=== PATIENT | male | born 1960 | race Caucasian/White ===

== ENCOUNTER 2016-08-13 21:38 | Emergency (ER) | payer OTHER ==
--- NOTE | ~2016-08-13 | CR72 ---
[facility]. [facility] A Service of [facility] & [facility] RADIOLOGY TEXT RESULTS PATIENT: KANDI ROBERTSON LOCATION: SED : 60 UNIT #: [id number] AGE: [address]: Robin Zapata MD SEX: M ORDER DR: [id number] [place] [id number] E MR#: [id number] Acc #: [id number] NAME: KANDI ROBERTSON. : 1960 SEX: M STUDY DATE/TIME: 08/13/2016 22:24 UNIT: SED ROOM: STUDY DESCRIPTION: CR Chest Single View Portable Attending Physician: Robin Zapata M.D. Ordering Physician: Robin Zapata M.D. Primary Care Physician: Shashank Vázquez M.D. MEDICAL IMAGING REPORT This report is preliminary unless electronic signature is present. EXAM Portable chest 08/13/2016 at 22:24 INDICATION Right-side chest pain and upper abdominal pain for 3 days. FINDINGS AP portable views of the chest are compared with 11/10/2013. Cardiac and mediastinal contours are normal. Patient is status post sternotomy. Lungs are clear. There is no pneumothorax. IMPRESSION No active disease. Dictated by... Varun Newsome Jr., M.D. THIS IS AN ELECTRONICALLY VERIFIED REPORT Varun Newsome Jr., M.D. at 08/14/2016 11:14 AM SCOTT/junior TD: 08/14/2016 06:21 JOB #: [id number] MEDICAL IMAGING REPORT Page 1 of 1
--- NOTE | ~2016-08-13 | EKG ---
PATIENT: KANDI ROBERTSON UNIT #: [id number] Ventricular Rate: 89 BPM Atrial Rate: 89 BPM P-R Interval: 154 ms QRS Duration: 76 ms Q-T Interval: 342 ms QTC Calculation(Bezet): 416 ms P [place]: 83 degrees Calculated R [place]: 83 degrees Calculated T [place]: -128 degrees Diagnosis Line: Normal sinus rhythm Diagnosis Line: Possible Left atrial enlargement Diagnosis Line: Left ventricular hypertrophy Diagnosis Line: Abnormal ECG Diagnosis Line: When compared with ECG of 12-NOV-2013 06:22, Diagnosis Line: Vent. rate has increased BY 33 BPM Diagnosis Line: ST now depressed in Inferior leads Diagnosis Line: T wave inversion now evident in Inferior leads Diagnosis Line: T wave inversion no longer evident in Anterior Diagnosis Line: leads Diagnosis Line: Confirmed by LIDYA MCKAY MD ([id number]) on Diagnosis Line: 08/24/2016 7:13:54 AM INTERPRETING XOCHILT MARROQUIN
--- NOTE | ~2016-08-13 | CT2 ---
[facility] A Service [facility] RADIOLOGY TEXT RESULTS PATIENT: KANDI ROBERTSON LOCATION: SED : 60 UNIT #: [id number] AGE: [address]: Robin Zapata MD SEX: M ORDER DR: [id number] [place] [address] [id number] E MR#: [id number] Acc #: [id number] NAME: KANDI ROBERTSON. : 1960 SEX: M STUDY DATE/TIME: 08/13/2016 22:38 UNIT: SED ROOM: STUDY DESCRIPTION: CT Abd and Pelv W Cont Attending Physician: Robin Zapata M.D. Ordering Physician: Robin Zapata M.D. Primary Care Physician: Shashank Vázquez M.D. MEDICAL IMAGING REPORT This report is preliminary unless electronic signature is present. EXAM CT abdomen and pelvis 08/13/2016 at 22:38 INDICATION Right-side chest and abdominal pain for 3 days. Pain is currently 10/10. TECHNIQUE Axial images were obtained through the abdomen and pelvis following IV contrast administration. Multiplanar reformats were obtained. Comparison made with 03/16/2010. This CT examination was performed with one or more of the following radiation dose reduction techniques: automatic exposure control, adjustment of mA and/or kV according to patient size, and iterative reconstruction. FINDINGS ABDOMEN: There is emphysema in the lung bases. The solid organs are normal. No free fluid or adenopathy is seen. The GI tract is within normal limits. Gallbladder unremarkable. No biliary obstruction. PELVIS: Urinary bladder is normal. Appendix is surgically absent. GI tract otherwise unremarkable. No free fluid. IMPRESSION 1. No acute findings in the abdomen or pelvis. 2. The GI tract is grossly normal except for changes of appendectomy. 3. Both kidneys enhance normally and are nonobstructed. 4. Emphysema in the lung bases. Dictated by... Varun Newsome Jr., M.D. THIS IS AN ELECTRONICALLY VERIFIED REPORT [facility] A Service [facility] RADIOLOGY TEXT RESULTS PATIENT: KANDI ROBERTSON LOCATION: [facility] : 60 UNIT #: [id number] AGE: [address]: Robin Zapata MD SEX: M ORDER DR: Varun Newsome Jr., M.D. at 08/14/2016 11:14 AM SCOTT/junior TD: 08/14/2016 06:38 JOB #: [id number] MEDICAL IMAGING REPORT Page 1 of 1
[~2016-08-13 21:38] MED LIST: ACETAMINOPHEN PO; ADVAIR INH; ALBUTEROL; ASPIRIN81 M2 PO; COLACE PO; COMBIVENT U/D3 M3 INH; COMBIVENT U/D3 ML INH; DILANTIN PO; DOXYCYCLINE PO; FIBERCON625 MG PO; HYDROCODON-ACE1 EAC4 PO; HYDROCODON-ACE1 EACH PO; KEFLEX PO; KEFLEX500 M1 PO; KEPPRA1000 MG PO; KEPPRA250 MG PO; KEPPRA500 MG PO; LIPITOR20 MG PO; LISINOPRIL PO; NAPROXEN PO; NICOTINE TRANSD21 MG EXT; NITROSTAT0.4 MG SL; NORVASC PO; PERCOCET10 PO; PERCOCET5/325 PO; PREDNISONE PO; PROTONIX PO; ROXICODONE15 MG PO; TEGRETOL XR PO; VICODIN 5/1 TAB 5/50 PO; VICODIN 5/500 T1 TAB PO; ZITHROMAX PO; [UNRECOGNIZED DRUG - OTHER]
[2016-08-13 21:40] LABS: BASOPHIL# 0.2 X10e3 (0-0.3); BASOPHIL% 1.1 % (0-2.5); EOSINOPHIL% 0.4 % (0.0-7.0); HEMATOCRIT 46.8 % (38.0-50.0); HEMOGLOBIN 16.6 gm/dL (13.0-16.0); LYMPHOCYTE# 1.6 X10e3 (1.0-3.5); LYMPHOCYTE% 11.8 % (17.0-45.0); MEAN CELL VOLUME 89.9 FL (83-96); MEAN CORPUSCULAR HEMOGLOBIN 31.9 PG (28-34); MEAN CORPUSCULAR HGB CONC 35.4 g/dL (30-36); MEAN PLATELET VOLUME 7.1 FL (6.5-11.5); MONOCYTE# 1.4 X10e3 (0-1.0); MONOCYTE% 10.4 % (3.0-12.0); NEUTROPHIL# 10.6 X10e3 (1.5-7.1); NEUTROPHIL% 76.3 % (40-75); PLATELET COUNT 207 X10e3 (140-420); RED CELL DISTRIBUTION WIDTH 14.2 % (11.0-15.5); WHITE BLOOD COUNT 13.8 X10e3 (4.0-10.5)
[2016-08-13 21:41] LABS: DIFF IND NO
[2016-08-13 21:45] LABS: INR 1.1; PROTHROMBIN TIME (PATIENT) 12.9 SECONDS (9.5-12.4)
[2016-08-13 21:53] LABS: PARTIAL THROMBOPLASTIN TIME 29.9 SECONDS (25.6-38.1)
[2016-08-13 21:55] LABS: ALBUMIN SERUM 4.7 g/dL (3.5-5.0); ALKALINE PHOSPHATASE 100 U/L (32-92); ALT (SGPT) 13 U/L (10-40); AST (SGOT) 19 U/L (10-42); BILIRUBIN, DIRECT 0.1 mg/dL (0.0-0.2); BILIRUBIN,INDIRECT 0.7 mg/dL (0.0-0.9); BILIRUBIN,TOTAL 0.8 mg/dL (0.2-2.0); BLOOD UREA NITROGEN 10 mg/dL (9-23); CALCIUM SERUM 9.9 mg/dL (8.4-10.2); CARBON DIOXIDE 23 mmol/L (22-31); CHLORIDE 95 mmol/L (100-111); CREATININE SERUM 0.8 mg/dL (0.6-1.4); GLOM FILT RATE Estimated 100.6 mL/min (>60); GLUCOSE FASTING 107 mg/dL (70-110); LIPASE 22 U/L (22-51); POTASSIUM 4.3 mmol/L (3.5-5.1); PROTEIN TOTAL SERUM 8.2 g/dL (6.0-8.3); SODIUM 130 mmol/L (135-145)
[2016-08-13 21:57] LABS: POC - CKMB 1.4 ng/mL (0.0-7.9); POC - MYOGLOBIN 99.2 ng/mL (0.0-169.0); POC - TROPONIN <0.05 ng/mL (<=0.05)
[2016-08-13 22:00] LABS: AMYLASE <7 U/L (0-46)
[2016-08-13 22:03] LABS: DDIMER <200 NG/ML (0-200)
[2016-08-13 22:51] LABS: URINE APPEARANCE CLEAR; URINE BLOOD NEG (NEG); URINE COLOR YELLOW; URINE GLUCOSE NEG (NORM); URINE LEUKOCYTE ESTERASE NEG (NEG); URINE NITRATE NEG (NEG); URINE PROTEIN TRACE (NEG)
[2016-08-13 22:52] LABS: MICRO INDICATED? NO; URINE BILIRUBIN NEG (NEG); URINE KETONE 2+ (NEG); URINE SOURCE CLEAN CATCH
[2016-08-13 23:00] LABS: AMPHETAMINE NEG (NEG); BARBITURATES NEG (NEG); BENZODIAZEPINES NEG (NEG); COCAINE NEG (NEG); MARIJUANA POS (NEG); OPIATES POS (NEG); TRICYCLIC ANTIDEPRESSANTS NEG (NEG); U METHADONE NEG (NEG)
[2016-08-14 01:10] LABS: POC - CKMB <1.0 ng/mL (0.0-7.9); POC - MYOGLOBIN 72.2 ng/mL (0.0-169.0); POC - TROPONIN <0.05 ng/mL (<=0.05)
== END 2016-08-14 01:40 | disposition home or self-care (01) ==
LOC: SED 21:38
PROVIDERS: Emergency Medicine
DX: R07.9 Chest pain, unspecified (principal); R10.9 Unspecified abdominal pain; E86.0 Dehydration; I10 Essential (primary) hypertension; E78.5 Hyperlipidemia, unspecified; F17.200 Nicotine dependence, unspecified, uncomplicated; Z79.82 Long term (current) use of aspirin; Z79.899 Other long term (current) drug therapy
CPT/HCPCS: 36415; 71010; 74177; 80048; 80076; 80156; 80307; 81003; 82150; 82553; 83690; 83874; 84484; 85025; 85379; 85610; 85730; 93005; 96374; 96375; 99284; C9113; J2270; J2405; Q9967